=== PATIENT | female | born 1975 | race Native Hawaiian/Other Pacific Islander ===

== ENCOUNTER 2021-09-11 12:05 | Outpatient (CLI) | payer OTHER | END 2021-09-11 19:00 | disposition home or self-care (01) | LOC: RAD 12:05 | PROVIDERS: ATTEND Internal Medicine | DX: M79.671 Pain in right foot (principal) ==

== ENCOUNTER 2022-08-03 13:25 | Emergency (ER) | payer OTHER ==
[~2022-08-03] VITALS: Ht 170.2 cm; Wt 97.5 kg
[2022-08-03 13:30] VITALS: BP 129/86; TEMP 98.5
== END 2022-08-03 15:25 | disposition home or self-care (01) ==
LOC: ED 13:25
DX: J40 Bronchitis, not specified as acute or chronic (principal)
CPT/HCPCS: 81025; 96372; 99283; J1100